=== PATIENT | male | born 1985 | race Caucasian/White ===

== ENCOUNTER 2022-08-04 14:38 | Emergency (ER) | payer BC, SELFPAY ==
[2022-08-04 14:44] VITALS: BP 142/92; PULSE 83; RESP 16; O2SAT 98
--- NOTE | 2022-08-04 15:36 | DI.RAD_ITS ---
Exam(s) XR NASAL BONES EXAM: XR NASAL BONES CLINICAL HISTORY: fracture TECHNIQUE: COMPARISON: No exams were available for comparison FINDINGS: Four views were obtained. There is a mildly displaced mildly comminuted fracture of the nasal bones. Gu view shows well aerated paranasal sinuses. IMPRESSION: RADIATION DOSE DELIVERED: Total DLP
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
[2022-08-04] MEDS: Oxymetazolone 0.05% SPRAY 15 ML BTL (16:17)
== END 2022-08-04 17:44 | disposition home or self-care (01) ==
PROVIDERS: Emergency Provider Physician Assistant
DX: S02.2XXA Fracture of nasal bones, initial encounter for closed fracture (principal); V17.9XXA Unspecified pedal cyclist injured in collision with fixed or stationary object in traffic accident, initial encounter
CPT/HCPCS: 30901; 99283; 70160